=== PATIENT | male | born 1960 | race Caucasian/White ===

== ENCOUNTER 2016-12-23 13:26 | Inpatient (IN) | payer OTHER ==
--- NOTE | ~2016-12-23 | CN ---
Consultation Report [facility] [address] [place]. [address] NAME: LUX CONNOLLY : 56 STATUS : ADM IN PAT#: [id number] AGE: 56 ADM/REG DATE : 12/23/16 MR#: [id number] REPORT SERV DATE: 12/30/16 DICTATED BY: BERNICE VALDEZ DATE: 12/30/16 REPORT STATUS : Draft TRANSCRIBED BY: MODL DATE: 12/30/16 GI CONSULTATION DATE OF CONSULTATION: 12/30/2016 REASON FOR CONSULTATION: Evaluation and management of acute on chronic nausea and vomiting. HISTORY OF PRESENT ILLNESS: Mr. Connolly is a 56-year-old male patient, seen by Dr. Robby Beckford in the past, who presented to [facility] on 12/23 with a chief complaint of accelerated hypertension and states that he passed out. He has been evaluated by CT of the brain on admission, which was negative. He has a history of end-stage renal disease, requiring dialysis, as well as chronic pain and peripheral vascular disease, status post bilateral kflqk-xsu-ovwb amputations. Presently, he is feeling better, but he has been having ongoing issues with nausea and vomiting as well as dry heaves, thus prompting GI consultation. The patient states that every morning, he wakes up nauseous, will typically have dry heaves and states that on the days of dialysis, this improves significantly after treatment, but most days, he has improvement during the day and he is able to eat. He does state though he has lost 25 pounds, but cannot give me a time frame; however, he states that he does eat. He denies dysphagia or odynophagia. He has not seen any melena or hematochezia. He was noted to have constipation on KUB on admission, which has resolved with treatment. GI was consulted secondary to continued nausea and vomiting. The patient states that at present, he feels okay. He was able to tolerate some breakfast. He states though he has no associated abdominal pain with this. Last EGD and colonoscopy with Dr. Beckford was in 2011. On colonoscopy, he had polyps removed, there were both tubular adenomatous and hyperplastic. Random biopsies throughout the colon were within normal limits. EGD was done and found H pylori negative, biopsies were taken showing chronic gastritis, and the biopsies of the duodenum were negative. Discussed with the patient we will alter his medication regimen to see if this gives him any benefit. Question if this can be related to gastroparesis related to his diabetes as well as chronic pain medication use versus gastroesophageal reflux disease. Did discuss with him if medication adjustment was not beneficial, we would potentially plan on performing upper endoscopy at some point and he is agreeable. PAST MEDICAL HISTORY: End-stage renal disease, requiring hemodialysis; type 2 diabetes, diabetic retinopathy and neuropathy; psoriasis, psoriatic arthritis; accelerated hypertension; anemia of chronic disease; peripheral vascular disease, status post bilateral egirn-yhn-ochk amputations; COPD; coronary artery disease; history of cardiac arrest; pulmonary thromboembolus; DVT; hypothyroidism; hyperlipidemia; BPH; depression; hard of hearing. PAST SURGICAL HISTORY: Laparoscopic cholecystectomy, bilateral qwchf-rkl-ogjx amputations, multiple lumbar surgeries, and carpal tunnel release. ALLERGIES: CODEINE. Consultation Report [place] [id number] [place]. [address] NAME: LUX CONNOLLY : 56 STATUS : ADM IN [facility]#: [id number] AGE: 56 ADM/REG DATE : 12/23/16 MR#: [id number] REPORT SERV DATE: 12/30/16 DICTATED BY: BERNICE VALDEZ DATE: 12/30/16 REPORT STATUS : Draft TRANSCRIBED BY: CLIFF DATE: 12/30/16 FAMILY HISTORY: Noncontributory from a GI standpoint. SOCIAL HISTORY: . Still lives independently. Denies alcohol or tobacco. MEDICATIONS: [address], NovoLog, Lantus, and Lopressor. REVIEW OF SYSTEMS: A 10-point review of systems obtained, pertinent positives addressed in the history of present illness. PERTINENT LABORATORY DATA: Sodium 140, potassium 3.7, BUN is 15, creatinine 4.86. White blood cell count is 49, hemoglobin 12.6, hematocrit 38.6, platelet count 158. CT scan on 12/29 was negative. Total bilirubin 0.5, alkaline phosphatase 67, ALT 15, AST 12. PHYSICAL EXAMINATION: VITAL SIGNS: Temperature 98.5, pulse 65, respirations 18, blood pressure 186/92. NEURO: Reveals an alert, however, hard of hearing male, resting in bed with no focal deficits. GENERAL: Cooperative, in no apparent distress. Awake, alert, and oriented x3. HEAD, EARS, EYES, NOSE, AND THROAT: Anicteric. Pupils equal, round, and reactive to light and accommodation. Normocephalic and atraumatic. NECK: Supple. LUNGS: Decreased throughout with normal respiratory effort exhibited and equal expansion. CARDIOVASCULAR SYSTEM: Regular rate and rhythm. ABDOMEN: Soft and flat. No distention. No rebound or guarding elicited on exam. EXTREMITIES: Bilateral cekkq-msd-rgva amputations noted. SKIN: Warm, dry, and intact. ASSESSMENT: 1. Nausea, dry heaves with emesis, acute on chronic. 2. Constipation, improved on medications. 3. End-stage renal disease, on dialysis. 4. Hypertension/accelerated. 5. History of peripheral vascular disease, status post bilateral savwg-lah-qkyp amputations. 6. Chronic pain. PLAN: 1. Increase PPI. Add H2 inhibitor. 2. Increase his Reglan. 3. MiraLax. 4. If no improvement, add Zithromax IV as a prokinetic. Questionable EGD at some point. Consultation Report [address] [place]. [address] NAME: LUX CONNOLLY : 56 STATUS : ADM IN PAT#: [id number] AGE: 56 ADM/REG DATE : 12/23/16 MR#: [id number] REPORT SERV DATE: 12/30/16 DICTATED BY: BERNICE VALDEZ DATE: 12/30/16 REPORT STATUS : Draft TRANSCRIBED BY: CLIFF DATE: 12/30/16 ABRAHAM/CLIFF CHARLIE Ball / [id number] CC: Zara Martinez M.D.
--- NOTE | ~2016-12-23 | CN ---
Consultation Report [facility] [address] [facility] [place]. [address] NAME: LUX CONNOLLY : 56 STATUS : ADM IN PAT#: [id number] AGE: 56 ADM/REG DATE : 12/23/16 MR#: [id number] REPORT SERV DATE: 12/26/16 DICTATED BY: BELL GUILLEN DATE: 12/26/16 REPORT STATUS : Draft TRANSCRIBED BY: MODL DATE: 12/26/16 PALLIATIVE CARE CONSULTATION DATE OF CONSULTATION: 12/26/2016 REASON FOR CONSULTATION: Ongoing palliative care support in a compromised 56-year-old dialysis patient. ALLERGIES: CODEINE, PROBABLE GI UPSET. HISTORY OF PRESENT ILLNESS: Lux is an unfortunate 56-year-old white male, living in [place], who was here in mid November with nausea, vomiting, diarrhea, and hypertension. His meds were adjusted and he evidently on 12/23 had dialysis, went home, and became unresponsive. He was evidently unable to speak. He was admitted, evaluated, and neurological workup was negative. He had marked hypertension with blood pressures in the 220 range over 115 to 120. He is now improving with better blood pressure control and feels he is ready for discharge home. PAST MEDICAL HISTORY: Includes in 06/2016 catheterization, evidently showing inoperable severe coronary disease and he has had some chest pain episodes, treated with nitrates. He has had bilateral kqamu-sig-pamx amputations and had a perioperative cardiac arrest, in which he describes a bright light in speaking to his mother. He has had lumbar laminectomy, and he has had end-stage renal disease for five years. SOCIAL HISTORY: Remarkable for being for probably 10 to 15 years. He has been from his for about a year. She is living separately from him, but comes and checks on him on a regular basis. She is evidently working. He is living in a mobile home. He is doing this independently and is able to transfer to his wheelchair without assistance. His , Jazzmine, is not at the bedside at this time. He also names his sister as somebody he would want to have involved in decision making if he was unable to do so. He is a nonsmoker and nondrinker. No illicit drugs recently. 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 There are no pets in the home. REVIEW OF SYSTEMS: System review includes neuropathic symptoms of both hands. He is very hard of hearing, it has gotten worse. He has abnormal pulmonary function test several years ago, showing a normal FEV1/FVC ratio, but significant volume reductions of both consistent with a possible restrictive lung disease. There is a history of, I believe, one possible isolated seizure. The patient tolerates dialysis three times a week and gets there by bus. He says he is fairly compliant with his medications. PHYSICAL EXAMINATION: GENERAL: Shows a well-developed, bearded gentleman with male pattern baldness. VITAL SIGNS: His BMI is 27.8; temp 98.2; pulse 67 and regular, sinus rhythm on telemetry; Consultation Report [address] [place]. [address] NAME: LUX CONNOLLY : 56 STATUS : ADM IN [facility]#: [id number] AGE: 56 ADM/REG DATE : 12/23/16 MR#: [id number] REPORT SERV DATE: 12/26/16 DICTATED BY: BELL GUILLEN DATE: 12/26/16 REPORT STATUS : Draft TRANSCRIBED BY: CLIFF DATE: 12/26/16 respiratory rate 16; blood pressure is 160/78. HEENT: Show markedly decreased hearing, but preserved speech. He initially gestured and indicated that he could not hear at all. However, clearly, he is able to hear mostly through his right ear, but a bit through his left. Once introduced and engaged in the conversation, he actually was relatively verbally intact. CHEST: Shows a right PermCath to be in place. RESPIRATORY: Lung sounds are slightly decreased bilaterally, but clear. HEART: Shows a regular rate and rhythm. No murmurs, gallops, or extra heart sounds. Pulses are decreased in the extremities. ABDOMEN: Soft and nontender without rebound, tenderness, or guarding. : Not examined. EXTREMITIES: Show bilateral avkev-jfw-obhv amputations with intact stumps. No skin breakdown noted. IMPRESSION, PLAN, AND DISCUSSION: As part of our introduction, the question of advance care planning and designating a surrogate was reviewed with him. He indicates that his sister and his do not get along. He initially had indicated he wanted his sister to be his spokesperson, but then changed it to his because "she has earned it." He is willing to be resuscitated again as the last time, things were fairly successful. Overall, his insight is somewhat compromised. A lot of his answers are somewhat apathetic. He has not really thought much about his future, even though he is a dialysis patient with double amputations, living by himself. His overall willingness to look at difficult decision making issues is certainly compromised. I suspect this is his usual coping style. Information regarding an advance care plan will be offered to the patient and hopefully, he will be able to do some of that before he leaves the hospital. I anticipate we will be seeing him again. RWG/JOHANL Bell Guillen M.D. / [id number] CC: Zara Martinez M.D.
--- NOTE | ~2016-12-23 | DS ---
Discharge Summary [facility] [address] [place]. [address] NAME: LUX CONNOLLY : 56 STATUS : DIS IN PAT#: [id number] AGE: 56 ADM/REG DATE : 12/23/16 MR#: [id number] REPORT SERV DATE: 01/13/17 DICTATED BY: YOGI ASHER DATE: 01/12/17 REPORT STATUS : Draft TRANSCRIBED BY: MODReggie DATE: 01/12/17 Data Collection from hospitalization DISCHARGE DIAGNOSES: 1. End-stage renal disease. 2. Nausea and vomiting. 3. Hypertension. 4. Diabetes mellitus. 5. History of bilateral below-knee amputations. 6. Anemia. 7. History of cardiac arrest. 8. Coronary artery disease. CONSULTATIONS: Dr. Santiago Guillen and Donnell Wooten. PROCEDURES: 1. CT scan of the brain without contrast, 12/23/2016. 2. CT scan of the abdomen and pelvis without contrast, 12/29/2016. DISCHARGE MEDICATIONS: Apresoline 50 mg twice a day, [place] 10/325 one tablet 5 times a day, NovoLog as per sliding scale as instructed, Lantus 5 units subcutaneously twice a day, Cozaar 100 mg daily, Reglan 10 mg every six hours as instructed, Lopressor 100 mg twice a day, Procardia XL 40 mg twice a day, Protonix 40 mg twice a day, MiraLAX powder one packet as instructed, Zoloft 100 mg daily. CONDITION ON DISCHARGE: Stable. DISPOSITION: The patient was discharged home on a renal diet. Activities as instructed. He would follow up with me as instructed. He would follow up at [facility] as scheduled. HOSPITAL COURSE: This is a 56-year-old man who was currently dialyzing as an outpatient at [facility]. He is well known to the nephrology service for complications of recurrent episodes of accelerated hypertension. He has been admitted at least two other times prior to this. He does have end-stage renal disease secondary to long-standing diabetes with many of its attendant complications including peripheral vascular disease and small vessel vasculopathy and as a result, has had bilateral zdgid-ngj-msnp amputations. He had been somewhat ambivalent about his need for dialysis. He had been on and off again with consideration for hospice and more recently had been receiving outpatient dialysis via a right IJ PermCath. He had never received a long-standing access. He was doing his usual dialysis on the day of his admission when he became unresponsive following the development of hypertension. This was during dialysis. He had an incomplete run, and his dialysis was discontinued. He was transferred to the emergency department of [facility] where he was found to have blood pressure of 227/97. He was given IV hydralazine followed by a single dose of oral clonidine. This was insufficient to control his blood pressure. He was subsequently placed on nicardipine, and blood pressure went down to 137/87. The etiology of these hypertensive crises was clear but may represent some type of intradialytic complication with residual kidney. At the time of admission, he was demonstrating limited communication. A CT scan of the brain was performed which failed to demonstrate Discharge Summary [address] [place]. [address] NAME: LUX CONNOLLY : 56 STATUS : DIS IN PAT#: [id number] AGE: 56 ADM/REG DATE : 12/23/16 MR#: [id number] REPORT SERV DATE: 01/13/17 DICTATED BY: YOGI ASHER DATE: 01/12/17 REPORT STATUS : Draft TRANSCRIBED BY: CLIFF DATE: 01/12/17 intracranial bleed, stroke, midline shift, or development of PRESS. He was admitted to the hospital at this time for further evaluation and treatment. Upon admission, creatinine level was 3.67. The patient had intradialytic accelerated hypertension of unknown etiology at this time. He was easily correctable with nifedipine drip. We were currently going to switch him over to oral nifedipine in an attempt to wean the current nicardipine off. The patient would be dialyzed the following morning, and orders were written, and he would then be transferred back to the snf upon stabilization. The following day, he did have some nausea at the time of hemodialysis. Cardene drip was discontinued. Home medications were going to be started on the . He did appear cachectic. He was in no acute distress. Blood pressure was stable. Blood pressure was controlled. He was seen in consultation by Dr. Santiago Guillen regarding ongoing palliative care support and a compromised dialysis patient. Neurological workup had been negative. He has had marked hypertension with blood pressure in the 220 range over 115 to 120. He was now improving with better blood pressure control, and he felt like he was ready to be discharged home. His code status was discussed. It was felt that his overall willingness to look at difficult decision=making issues was certainly compromised. Information regarding an advanced care plan would be offered to the patient, and we were hopeful he would be able to do some of that before he leaves the hospital. On 12/27/2016, he denied any shortness of breath. He did have some nausea, vomiting, and dry heaves. Next day, his nausea had improved with Reglan. He had a bowel movement. Hemodialysis therapy continued. On the floor, he did have some liquid stools. He still had some dry heaves. His abdomen was soft and nontender. His lungs remained clear. Proton pump inhibitor was provided. He had been placed back on his usual Lortab. He could not keep anything oral down despite Reglan and Zofran. IV Reglan was being given. Proton pump inhibitor continued. He was seen by Donnell Wooten. H. pylori study was negative. We have been asked to evaluate and manage acute on chronic nausea and vomiting. The patient said he was feeling okay. He was able to tolerate some breakfast. He said he had no associated abdominal pain with this. His last EGD and colonoscopy had been in [address] Beckford. He has had polyps removed on the colonoscopy. He has had tubular adenomatous and hyperplastic polyps. Random biopsies throughout the colon were within normal limits. EGD revealed H. pylori negative. It was discussed with the patient that his medication regimen would be adjusted to see if this would give him any benefit. There was a question if this could be related to gastroparesis related to his diabetes as well as chronic pain medication use versus gastroesophageal reflux disease. It was discussed with him that if medication adjustment was not beneficial, that we would potentially plan on performing upper GI endoscopy at some point, and he was agreeable. Proton pump inhibitor was increased. H2 inhibitor was added. Reglan was increased. MiraLAX was given. If there was no improvement, we would add IV Zithromax as a prokinetic. On the , he did tolerate his breakfast. He had no edema. Creatinine level was 4.64. On 01/01/2017, his proton pump inhibitor and Reglan were changed to oral dosing. Nausea and vomiting seemed to be improving. The next day, hemodialysis therapy was performed. He was in no acute distress. Discharge planning was performed on 01/03/2017. He was alert and cooperative. Creatinine was 6.56. He was going to resume his outpatient hemodialysis. Blood pressure medications were increased. Discharge instructions were given. Due to his Discharge Summary [place] [address] [place] [address] NAME: LUX CONNOLLY : 56 STATUS : DIS IN PAT#: [id number] AGE: 56 ADM/REG DATE : 12/23/16 MR#: [id number] REPORT SERV DATE: 01/13/17 DICTATED BY: YOGI ASHER DATE: 01/12/17 REPORT STATUS : Draft TRANSCRIBED BY: CLIFF DATE: 01/12/17 improved and stable condition, he was discharged home with the above-stated instructions. Information collected by: Elly Davis I submit the above information as my discharge summary. TG/CLIFF Yogi Asher M.D. / [id number] CC: Jagdeep Jimenez M.D. [place] CHARLIE Wooten M.D.
--- NOTE | ~2016-12-23 | HP ---
History And Physical [place] [id number] [facility] [place]. [address] NAME: LUX CONNOLLY : 56 STATUS : ADM IN PAT#: [id number] AGE: 56 ADM/REG DATE : 12/23/16 MR#: [id number] REPORT SERV DATE: 12/24/16 DICTATED BY: YOGI ASHER DATE: 12/23/16 REPORT STATUS : Draft TRANSCRIBED BY: MODL DATE: 12/23/16 DATE OF ADMISSION: 12/23/2016 REASON FOR ADMISSION: Accelerated hypertension with end-stage renal disease and severe peripheral vascular disease. HISTORY OF PRESENT ILLNESS: Mr. Connolly is a 56-year-old male, who is currently dialyzing at the outpatient [facility]. He is well known to the Nephrology Service for complications of recurrent episodes of accelerated hypertension. He has been admitted at least 2 other times prior to this. The patient is known to have end-stage renal disease secondary to long-standing diabetes with many of its attendant complications including peripheral vascular disease and small vessel vasculopathy as a result of bilateral oxmju-kky-aojs amputations. The patient has been somewhat ambivalent about his need for dialysis. He has been on and off again with considerations for hospice and more recently has been receiving outpatient dialysis via a right IJ PermCath. The patient has never received a longstanding access. The patient was at his usual dialysis today when he became unresponsive following the development of hypertension. This was during dialysis, he had an incomplete run and his dialysis was discontinued. He was transferred to the emergency department at [facility] whereupon he was found to have a blood pressure of 227/97. He was attempted first with 10 mg of IV hydralazine followed by a single 0.1 mg dose of oral clonidine. This was insufficient to control his blood pressure. He was subsequently put on nicardipine at 2.5 mg/hour, he is currently 137/87. The etiology of these hypertensive crises are unclear, but may represent some type of intra dialytic complication with residual kidneys. The patient currently demonstrated limited communication. A head CT was obtained which failed to demonstrate intracranial bleed, stroke, midline shift, or development of press. He was subsequently admitted to the Renal Team. PHYSICAL EXAMINATION: On admission VITAL SIGNS: Blood pressure 227/92, pulse 62, respirations of 16, temperature 98.2, percent saturation is 100%. GENERAL: The patient is currently awake. He will respond to questions with a nodding of his head, but he does not engage in communication. He is unable to locate or identify his dialysis unit. HEENT: Exam shows no gross signs of trauma. He has mild temporal wasting. 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 His oral exam, the patient was not cooperative. He would not open his mouth. NECK: His neck is not rigid. There are no signs of meningeal pain at this time. LUNGS: His lungs are completely clear to auscultation without rales, rhonchi, or wheezes. No pleural friction or rub is noted. No consolidation, dullness, or egophony. CARDIOVASCULAR: Exam is normal S1, S2. No murmurs, gallops at this time. No ectopy. No pericardial friction rub. His right shoulder demonstrates a noninfected right IJ PermCath. ABDOMEN: Exam is flat and scaphoid. Nontender in all quadrants. No hepatosplenomegaly. EXTREMITIES: Significant for bilateral jsapc-owe-gjkm amputations. He has a nonfocal sensory motor exam. History And Physical [address] [address] NAME: LUX CONNOLLY : 56 STATUS : ADM IN [facility]#: [id number] AGE: 56 ADM/REG DATE : 12/23/16 MR#: [id number] REPORT SERV DATE: 12/24/16 DICTATED BY: YOGI ASHER DATE: 12/23/16 REPORT STATUS : Draft TRANSCRIBED BY: CLIFF DATE: 12/23/16 ALLERGIES: NONE. PAST SURGICAL HISTORY: 1. Laparoscopic cholecystectomy. 2. Bilateral tmvco-fir-tcfj amputations. 3. Multiple lumbar surgery. 4. Carpal tunnel release syndrome. FAMILY MEDICAL HISTORY: Father and grandmother both with diabetes and renal disease, but currently not on dialysis. Positive family history of heart disease. SOCIAL HISTORY: The patient is apparently . The patient is currently residing at a local jail. LABORATORY DATA: White count 5.1, hemoglobin 12.5, hematocrit 37.8, MCV of 89, platelet count of 149,000, sodium 142, potassium 4.2, chloride is 105, bicarb 27, BUN 20, creatinine 3.67, total protein 7.3, albumin 3.4. CURRENT MEDICATIONS: Are as follows: 1. Sliding scale insulin. 2. Zoloft 100 mg p.o. at bedtime. 3. Nifedipine 90 mg p.o. daily. 4. Cozaar 100 mg p.o. daily. 5. Protonix 40 mg p.o. daily. ASSESSMENT AND PLAN: End-stage renal disease with intra dialytic accelerated hypertension. Etiology is unknown at this time. He was easily correctable with nifedipine drip. We are currently going to switch him over to oral nifedipine and attempt to wean the current nicardipine to off. The patient will be dialyzed in the morning and the orders have been written and then he will be transferred back to his jail upon stabilization. WENDY/CLIFF Yogi Asher M.D. / [id number] CC: Zara Martinez M.D.
[~2016-12-23 13:26] MED LIST: ADVIL PO; APRES25 PO; APRES50 PO; ASAB PO; AVASTIN IO; AZOR1 TA2 PO; BACDS PO; BC HEADACHE PO; CELEXA20 PO; CLARIT10 PO; COREG12 PO; COREG25 PO; COREG6 PO; COZ50 PO; COZAAR100 MG PO; DIALYVITE800 MG PO; DSS PO; FERROUS SULF324 MG PO; FESO4 PO; FLOMAX4 PO; FOLIC PO; GLUCOPHAGE1000 MG PO; GLUCOTRO10 PO; HCTZ25B PO; HEMOCYTE324 MG PO; HEMOCYTET PO; HUMULIN R1 ML SC; HYDROCHLOROT12.5 MG PO; IODOSORB GEL T; LANTUS SC; LEVEMFLXPN SC; LEVEMIR SC; LORTAB 5 PO; LORTAB10 PO; MSCONT15 PO; NEUR100 PO; NORCO1 TAB PO; NORV10 PO; NORV5 PO; NOVOLOG SC; OPTHALMIC SC; PERCOCET1 TA3 PO; PHENERGAN 2525 MG/ML IV; PR12.5 PO; PRAVAC PO; PRAVACHOL40 MG PO; PRIN10 PO; PROTONIX PO; REG5 PO; RIFADIN150 MG PO; RIFAMPIN; ROCEPH IV; SEPTRA DS1 TAB PO; TUMSROLL PO; VANC125UDL PO; VANCO1P IV; [UNRECOGNIZED DRUG - OTHER] IV; [UNRECOGNIZED DRUG - REMARK] OPH
[2016-12-23 14:04] LABS: BASOPHILS 0.2 %; BASOPHILS ABSOLUTE 0.01 10/3/uL (0.0-0.16); EOSINOPHILS 2.4 %; EOSINOPHILS ABSOLUTE 0.12 10/3/uL (0.0-0.53); ER CBC TAT 0 Hrs 05 Mins; IMMATURE GRANULOCYTES 0.2 %; IMMATURE GRANULOCYTES ABSOLUTE 0.01 10/3/uL (0.0-0.11); LYMPHOCYTES 20.9 %; LYMPHOCYTES ABSOLUTE 1.06 10/3/uL (0.67-4.30); MEAN CORPUS HGB CONC 33.1 g/dL (32.0-36.0); MEAN CORPUSCULAR HEMOGLOB 29.5 pg (26.0-34.0); MEAN PLATELET VOLUME 8.6 fL (9.2-13.0); MONOCYTES 7.7 %; MONOCYTES ABSOLUTE 0.39 10/3/uL (0.21-1.20); NEUTROPHILS 68.6 %; NEUTROPHILS ABSOLUTE 3.48 10/3/uL (2.02-8.40); PLATELET COUNT 149 10/3/uL (150-400); RBC DISTRIBUTION WIDTH 15.1 % (12.0-16.0); WHITE BLOOD CELLS 5.1 10/3/uL (4.5-10.5)
[2016-12-23 14:08] LABS: HEMATOCRIT 37.8 % (40.0-51.0); HEMOGLOBIN 12.5 g/dL (13.6-17.8); MANUAL DIFF NO %; MEAN CORPUSCULAR VOLUME 89.2 fL (80-100); RED CELL COUNT 4.24 10/6/uL (4.7-6.1)
[2016-12-23 14:15] LABS: INTERNATIONAL NORMAL RATI 1.1 UNITS (-); PARTIAL THROMBO TIME 33.1 SEC (22.5-37.2); PROTIME (NOT ORD) 14.1 SEC (12.0-14.5)
[2016-12-23 14:23] LABS: A/G RATIO 0.9 (0.7-1.9); ALBUMIN 3.4 G/DL (3.5-5.0); ALKALINE PHOSPHATASE 66 U/L (45-117); BUN (BLOOD UREA NITROGEN) 20 MG/DL (6-23); CALCIUM, SERUM 7.8 MG/DL (8.5-10.4); CHLORIDE, SERUM 105 MMOL/L (96-112); CO2 (CARBON DIOXIDE) 27 MMOL/L (24-34); CREATININE 3.67 MG/DL (0.70-1.30); GFR AFRICAN AMERICAN 20 ML/MIN (>=60); GFR NON AFRICAN AMERICAN 17 ML/MIN (>=60); GLOBULIN 3.9 G/DL (2.5-4.1); GLUCOSE, SERUM 81 MG/DL (60-99); POTASSIUM, SERUM 4.2 MMOL/L (3.5-5.3); SGPT(ALT) 14 U/L (5-65); SODIUM, SERUM 142 MMOL/L (135-148); TOTAL BILIRUBIN 0.4 MG/DL (0-1.2); TOTAL PROTEIN 7.3 G/DL (6.0-8.5); TROPONIN I 0.03 NG/ML (<0.05)
[2016-12-23 14:24] LABS: SGOT(AST) 21 U/L (5-40)
[2016-12-23] MEDS ORDERED: LOP100 PO (15:43)
[2016-12-23] MEDS ORDERED: *UNABLE1 (15:51)
[2016-12-24 06:07] LABS: ALBUMIN 3.2 G/DL (3.5-5.0); ALKALINE PHOSPHATASE 60 U/L (45-117); CHLORIDE, SERUM 107 MMOL/L (96-112); CO2 (CARBON DIOXIDE) 24 MMOL/L (24-34); GLOBULIN 3.3 G/DL (2.5-4.1); GLUCOSE, SERUM 72 MG/DL (60-99); PHOSPHORUS, SERUM 4.3 MG/DL (2.5-4.5); POTASSIUM, SERUM 4.9 MMOL/L (3.5-5.3); SGOT(AST) 16 U/L (5-40); SGPT(ALT) 14 U/L (5-65); SODIUM, SERUM 141 MMOL/L (135-148); TOTAL BILIRUBIN 0.5 MG/DL (0-1.2); TOTAL PROTEIN 6.5 G/DL (6.0-8.5)
[2016-12-24 06:08] LABS: BUN (BLOOD UREA NITROGEN) 27 MG/DL (6-23); CALCIUM, SERUM 9.2 MG/DL (8.5-10.4); GFR AFRICAN AMERICAN 15 ML/MIN (>=60); GFR NON AFRICAN AMERICAN 13 ML/MIN (>=60); TROPONIN I 0.06 NG/ML (<0.05)
[2016-12-24 07:23] LABS: BASOPHILS 0.5 %; BASOPHILS ABSOLUTE 0.03 10/3/uL (0.0-0.16); EOSINOPHILS 1.8 %; HEMATOCRIT 35.9 % (40.0-51.0); HEMOGLOBIN 11.8 g/dL (13.6-17.8); IMMATURE GRANULOCYTES 0.2 %; IMMATURE GRANULOCYTES ABSOLUTE 0.01 10/3/uL (0.0-0.11); LYMPHOCYTES 19.5 %; LYMPHOCYTES ABSOLUTE 1.07 10/3/uL (0.67-4.30); MEAN CORPUS HGB CONC 32.9 g/dL (32.0-36.0); MEAN CORPUSCULAR HEMOGLOB 29.6 pg (26.0-34.0); MONOCYTES 7.5 %; MONOCYTES ABSOLUTE 0.41 10/3/uL (0.21-1.20); NEUTROPHILS 70.5 %; NEUTROPHILS ABSOLUTE 3.87 10/3/uL (2.02-8.40); PLATELET COUNT 165 10/3/uL (150-400); RBC DISTRIBUTION WIDTH 14.7 % (12.0-16.0); RED CELL COUNT 3.99 10/6/uL (4.7-6.1); WHITE BLOOD CELLS 5.5 10/3/uL (4.5-10.5)
[2016-12-24 07:24] LABS: MANUAL DIFF NO %
[2016-12-25 05:20] LABS: BASOPHILS 0.5 %; BASOPHILS ABSOLUTE 0.03 10/3/uL (0.0-0.16); EOSINOPHILS 0.7 %; EOSINOPHILS ABSOLUTE 0.04 10/3/uL (0.0-0.53); HEMATOCRIT 35.7 % (40.0-51.0); HEMOGLOBIN 11.7 g/dL (13.6-17.8); IMMATURE GRANULOCYTES 0.2 %; IMMATURE GRANULOCYTES ABSOLUTE 0.01 10/3/uL (0.0-0.11); LYMPHOCYTES 23.1 %; LYMPHOCYTES ABSOLUTE 1.36 10/3/uL (0.67-4.30); MEAN CORPUS HGB CONC 32.8 g/dL (32.0-36.0); MEAN CORPUSCULAR HEMOGLOB 29.5 pg (26.0-34.0); MEAN CORPUSCULAR VOLUME 89.9 fL (80-100); MEAN PLATELET VOLUME 9.4 fL (9.2-13.0); MONOCYTES 8.5 %; NEUTROPHILS ABSOLUTE 3.96 10/3/uL (2.02-8.40); PLATELET COUNT 166 10/3/uL (150-400); RBC DISTRIBUTION WIDTH 14.9 % (12.0-16.0); RED CELL COUNT 3.97 10/6/uL (4.7-6.1); WHITE BLOOD CELLS 5.9 10/3/uL (4.5-10.5)
[2016-12-25 05:24] LABS: MANUAL DIFF NO %
[2016-12-25 05:30] LABS: INTERNATIONAL NORMAL RATI 1.2 UNITS (-); PROTIME (NOT ORD) 15.1 SEC (12.0-14.5)
[2016-12-25 05:40] LABS: ALBUMIN 3.3 G/DL (3.5-5.0); ALKALINE PHOSPHATASE 67 U/L (45-117); CHLORIDE, SERUM 107 MMOL/L (96-112); CO2 (CARBON DIOXIDE) 28 MMOL/L (24-34); CREATININE 4.17 MG/DL (0.70-1.30); DIRECT BILIRUBIN 0.1 MG/DL (0.0-0.4); GFR AFRICAN AMERICAN 17 ML/MIN (>=60); GFR NON AFRICAN AMERICAN 15 ML/MIN (>=60); GLUCOSE, SERUM 68 MG/DL (60-99); INDIRECT BILIRUBIN(NOT ORDER) 0.4 MG/DL (0.1-0.9); PHOSPHORUS, SERUM 3.8 MG/DL (2.5-4.5); POTASSIUM, SERUM 4.1 MMOL/L (3.5-5.3); SGOT(AST) 12 U/L (5-40); SGPT(ALT) 15 U/L (5-65); SODIUM, SERUM 144 MMOL/L (135-148); TOTAL BILIRUBIN 0.5 MG/DL (0-1.2); TOTAL PROTEIN 6.6 G/DL (6.0-8.5)
[2016-12-25 05:45] LABS: BUN (BLOOD UREA NITROGEN) 19 MG/DL (6-23); CALCIUM, SERUM 8.1 MG/DL (8.5-10.4); TROPONIN I 0.05 NG/ML (<0.05)
[2016-12-26 06:12] LABS: ALBUMIN 3.2 G/DL (3.5-5.0); BUN (BLOOD UREA NITROGEN) 29 MG/DL (6-23); CALCIUM, SERUM 7.8 MG/DL (8.5-10.4); CHLORIDE, SERUM 103 MMOL/L (96-112); CO2 (CARBON DIOXIDE) 25 MMOL/L (24-34); CREATININE 5.21 MG/DL (0.70-1.30); GFR AFRICAN AMERICAN 13 ML/MIN (>=60); GFR NON AFRICAN AMERICAN 11 ML/MIN (>=60); GLUCOSE, SERUM 72 MG/DL (60-99); PHOSPHORUS, SERUM 4.3 MG/DL (2.5-4.5); POTASSIUM, SERUM 4.2 MMOL/L (3.5-5.3); SODIUM, SERUM 137 MMOL/L (135-148)
[2016-12-26 07:32] LABS: BASOPHILS 0.3 %; BASOPHILS ABSOLUTE 0.02 10/3/uL (0.0-0.16); EOSINOPHILS 1.4 %; HEMATOCRIT 36.3 % (40.0-51.0); HEMOGLOBIN 12.1 g/dL (13.6-17.8); IMMATURE GRANULOCYTES 0.3 %; IMMATURE GRANULOCYTES ABSOLUTE 0.02 10/3/uL (0.0-0.11); LYMPHOCYTES 13.6 %; LYMPHOCYTES ABSOLUTE 0.96 10/3/uL (0.67-4.30); MEAN CORPUS HGB CONC 33.3 g/dL (32.0-36.0); MEAN CORPUSCULAR HEMOGLOB 29.2 pg (26.0-34.0); MEAN CORPUSCULAR VOLUME 87.5 fL (80-100); MEAN PLATELET VOLUME 9.7 fL (9.2-13.0); MONOCYTES 10.3 %; MONOCYTES ABSOLUTE 0.73 10/3/uL (0.21-1.20); NEUTROPHILS 74.1 %; NEUTROPHILS ABSOLUTE 5.23 10/3/uL (2.02-8.40); PLATELET COUNT 157 10/3/uL (150-400); RBC DISTRIBUTION WIDTH 14.4 % (12.0-16.0); RED CELL COUNT 4.15 10/6/uL (4.7-6.1); WHITE BLOOD CELLS 7.1 10/3/uL (4.5-10.5)
[2016-12-26 07:35] LABS: MANUAL DIFF NO %
[2016-12-28 09:57] LABS: BASOPHILS 0.3 %; BASOPHILS ABSOLUTE 0.02 10/3/uL (0.0-0.16); EOSINOPHILS 1.8 %; EOSINOPHILS ABSOLUTE 0.11 10/3/uL (0.0-0.53); HEMATOCRIT 37.2 % (40.0-51.0); HEMOGLOBIN 12.4 g/dL (13.6-17.8); IMMATURE GRANULOCYTES 0.2 %; IMMATURE GRANULOCYTES ABSOLUTE 0.01 10/3/uL (0.0-0.11); LYMPHOCYTES 22.4 %; LYMPHOCYTES ABSOLUTE 1.36 10/3/uL (0.67-4.30); MEAN CORPUS HGB CONC 33.3 g/dL (32.0-36.0); MEAN CORPUSCULAR HEMOGLOB 29.7 pg (26.0-34.0); MEAN PLATELET VOLUME 9.4 fL (9.2-13.0); MONOCYTES 12.2 %; MONOCYTES ABSOLUTE 0.74 10/3/uL (0.21-1.20); NEUTROPHILS 63.1 %; NEUTROPHILS ABSOLUTE 3.82 10/3/uL (2.02-8.40); PLATELET COUNT 174 10/3/uL (150-400); RBC DISTRIBUTION WIDTH 14.5 % (12.0-16.0); RED CELL COUNT 4.18 10/6/uL (4.7-6.1); WHITE BLOOD CELLS 6.1 10/3/uL (4.5-10.5)
[2016-12-28 09:58] LABS: MANUAL DIFF NO %
[2016-12-28 10:06] LABS: ALBUMIN 3.3 G/DL (3.5-5.0); BUN (BLOOD UREA NITROGEN) 27 MG/DL (6-23); CALCIUM, SERUM 8.3 MG/DL (8.5-10.4); CHLORIDE, SERUM 104 MMOL/L (96-112); GFR AFRICAN AMERICAN 11 ML/MIN (>=60); GFR NON AFRICAN AMERICAN 10 ML/MIN (>=60); GLUCOSE, SERUM 76 MG/DL (60-99); PHOSPHORUS, SERUM 4.7 MG/DL (2.5-4.5); POTASSIUM, SERUM 3.8 MMOL/L (3.5-5.3); SODIUM, SERUM 140 MMOL/L (135-148)
[2016-12-28 10:07] LABS: CO2 (CARBON DIOXIDE) 30 MMOL/L (24-34)
[2016-12-29 07:16] LABS: BASOPHILS 0.6 %; BASOPHILS ABSOLUTE 0.03 10/3/uL (0.0-0.16); EOSINOPHILS 1.6 %; EOSINOPHILS ABSOLUTE 0.08 10/3/uL (0.0-0.53); HEMATOCRIT 38.6 % (40.0-51.0); HEMOGLOBIN 12.6 g/dL (13.6-17.8); IMMATURE GRANULOCYTES 0.8 %; IMMATURE GRANULOCYTES ABSOLUTE 0.04 10/3/uL (0.0-0.11); LYMPHOCYTES 19.8 %; LYMPHOCYTES ABSOLUTE 0.97 10/3/uL (0.67-4.30); MANUAL DIFF NO %; MEAN CORPUS HGB CONC 32.6 g/dL (32.0-36.0); MEAN CORPUSCULAR HEMOGLOB 29.4 pg (26.0-34.0); MONOCYTES 8.8 %; MONOCYTES ABSOLUTE 0.43 10/3/uL (0.21-1.20); NEUTROPHILS 68.4 %; NEUTROPHILS ABSOLUTE 3.34 10/3/uL (2.02-8.40); PLATELET COUNT 158 10/3/uL (150-400); RBC DISTRIBUTION WIDTH 14.6 % (12.0-16.0); RED CELL COUNT 4.29 10/6/uL (4.7-6.1); WHITE BLOOD CELLS 4.9 10/3/uL (4.5-10.5)
[2016-12-29 07:30] LABS: ALBUMIN 3.4 G/DL (3.5-5.0); BUN (BLOOD UREA NITROGEN) 15 MG/DL (6-23); CALCIUM, SERUM 8.3 MG/DL (8.5-10.4); CHLORIDE, SERUM 104 MMOL/L (96-112); CO2 (CARBON DIOXIDE) 27 MMOL/L (24-34); CREATININE 4.86 MG/DL (0.70-1.30); GFR AFRICAN AMERICAN 14 ML/MIN (>=60); GFR NON AFRICAN AMERICAN 12 ML/MIN (>=60); GLUCOSE, SERUM 90 MG/DL (60-99); PHOSPHORUS, SERUM 3.9 MG/DL (2.5-4.5); POTASSIUM, SERUM 3.7 MMOL/L (3.5-5.3); SODIUM, SERUM 140 MMOL/L (135-148)
[2016-12-30 16:18] LABS: BASOPHILS 0.2 %; BASOPHILS ABSOLUTE 0.01 10/3/uL (0.0-0.16); EOSINOPHILS 1.3 %; EOSINOPHILS ABSOLUTE 0.07 10/3/uL (0.0-0.53); HEMATOCRIT 35.5 % (40.0-51.0); HEMOGLOBIN 11.8 g/dL (13.6-17.8); IMMATURE GRANULOCYTES 0.2 %; IMMATURE GRANULOCYTES ABSOLUTE 0.01 10/3/uL (0.0-0.11); LYMPHOCYTES 23.7 %; LYMPHOCYTES ABSOLUTE 1.31 10/3/uL (0.67-4.30); MEAN CORPUS HGB CONC 33.2 g/dL (32.0-36.0); MEAN CORPUSCULAR HEMOGLOB 28.9 pg (26.0-34.0); MONOCYTES 8.5 %; MONOCYTES ABSOLUTE 0.47 10/3/uL (0.21-1.20); NEUTROPHILS 66.1 %; NEUTROPHILS ABSOLUTE 3.65 10/3/uL (2.02-8.40); PLATELET COUNT 144 10/3/uL (150-400); RBC DISTRIBUTION WIDTH 14.4 % (12.0-16.0); RED CELL COUNT 4.08 10/6/uL (4.7-6.1); WHITE BLOOD CELLS 5.5 10/3/uL (4.5-10.5)
[2016-12-30 16:21] LABS: MANUAL DIFF NO %
[2016-12-30 16:38] LABS: ALBUMIN 3.2 G/DL (3.5-5.0); BUN (BLOOD UREA NITROGEN) 29 MG/DL (6-23); CALCIUM, SERUM 7.7 MG/DL (8.5-10.4); CHLORIDE, SERUM 103 MMOL/L (96-112); CO2 (CARBON DIOXIDE) 30 MMOL/L (24-34); GFR AFRICAN AMERICAN 10 ML/MIN (>=60); GFR NON AFRICAN AMERICAN 9 ML/MIN (>=60); GLUCOSE, SERUM 124 MG/DL (60-99); PHOSPHORUS, SERUM 4.9 MG/DL (2.5-4.5); POTASSIUM, SERUM 3.9 MMOL/L (3.5-5.3); SODIUM, SERUM 137 MMOL/L (135-148)
[2016-12-31 06:13] LABS: BASOPHILS 0.5 %; BASOPHILS ABSOLUTE 0.03 10/3/uL (0.0-0.16); EOSINOPHILS 2.5 %; EOSINOPHILS ABSOLUTE 0.14 10/3/uL (0.0-0.53); HEMOGLOBIN 12.8 g/dL (13.6-17.8); IMMATURE GRANULOCYTES 0.2 %; IMMATURE GRANULOCYTES ABSOLUTE 0.01 10/3/uL (0.0-0.11); LYMPHOCYTES 22.8 %; LYMPHOCYTES ABSOLUTE 1.28 10/3/uL (0.67-4.30); MEAN CORPUS HGB CONC 32.8 g/dL (32.0-36.0); MEAN CORPUSCULAR HEMOGLOB 29.2 pg (26.0-34.0); MEAN CORPUSCULAR VOLUME 88.8 fL (80-100); MEAN PLATELET VOLUME 9.2 fL (9.2-13.0); MONOCYTES 9.6 %; MONOCYTES ABSOLUTE 0.54 10/3/uL (0.21-1.20); NEUTROPHILS 64.4 %; NEUTROPHILS ABSOLUTE 3.62 10/3/uL (2.02-8.40); PLATELET COUNT 147 10/3/uL (150-400); RBC DISTRIBUTION WIDTH 14.3 % (12.0-16.0); RED CELL COUNT 4.39 10/6/uL (4.7-6.1); WHITE BLOOD CELLS 5.6 10/3/uL (4.5-10.5)
[2016-12-31 06:18] LABS: ALBUMIN 3.3 G/DL (3.5-5.0); CALCIUM, SERUM 7.7 MG/DL (8.5-10.4); CHLORIDE, SERUM 107 MMOL/L (96-112); CO2 (CARBON DIOXIDE) 28 MMOL/L (24-34); MANUAL DIFF NO %; POTASSIUM, SERUM 4.3 MMOL/L (3.5-5.3); SODIUM, SERUM 143 MMOL/L (135-148)
[2016-12-31 06:19] LABS: BUN (BLOOD UREA NITROGEN) 18 MG/DL (6-23); CREATININE 4.64 MG/DL (0.70-1.30); GFR AFRICAN AMERICAN 15 ML/MIN (>=60); GFR NON AFRICAN AMERICAN 13 ML/MIN (>=60); GLUCOSE, SERUM 88 MG/DL (60-99); PHOSPHORUS, SERUM 3.8 MG/DL (2.5-4.5)
[2017-01-02 06:05] LABS: BASOPHILS 0.7 %; BASOPHILS ABSOLUTE 0.03 10/3/uL (0.0-0.16); EOSINOPHILS 3.1 %; EOSINOPHILS ABSOLUTE 0.14 10/3/uL (0.0-0.53); HEMATOCRIT 36.1 % (40.0-51.0); HEMOGLOBIN 11.9 g/dL (13.6-17.8); IMMATURE GRANULOCYTES 0.2 %; IMMATURE GRANULOCYTES ABSOLUTE 0.01 10/3/uL (0.0-0.11); LYMPHOCYTES ABSOLUTE 1.83 10/3/uL (0.67-4.30); MEAN PLATELET VOLUME 9.5 fL (9.2-13.0); MONOCYTES 9.2 %; MONOCYTES ABSOLUTE 0.42 10/3/uL (0.21-1.20); NEUTROPHILS 46.8 %; NEUTROPHILS ABSOLUTE 2.15 10/3/uL (2.02-8.40); PLATELET COUNT 120 10/3/uL (150-400); RBC DISTRIBUTION WIDTH 14.3 % (12.0-16.0); WHITE BLOOD CELLS 4.6 10/3/uL (4.5-10.5)
[2017-01-02 06:07] LABS: MANUAL DIFF NO %
[2017-01-02 06:29] LABS: ALBUMIN 3.3 G/DL (3.5-5.0); CALCIUM, SERUM 7.7 MG/DL (8.5-10.4); CHLORIDE, SERUM 105 MMOL/L (96-112); GLUCOSE, SERUM 91 MG/DL (60-99); POTASSIUM, SERUM 3.9 MMOL/L (3.5-5.3); SODIUM, SERUM 139 MMOL/L (135-148)
[2017-01-02 06:30] LABS: BUN (BLOOD UREA NITROGEN) 45 MG/DL (6-23); CO2 (CARBON DIOXIDE) 23 MMOL/L (24-34); CREATININE 6.56 MG/DL (0.70-1.30); GFR AFRICAN AMERICAN 10 ML/MIN (>=60); GFR NON AFRICAN AMERICAN 8 ML/MIN (>=60); PHOSPHORUS, SERUM 5.9 MG/DL (2.5-4.5)
[2017-01-03] MEDS ORDERED: COZAAR100 MG PO (12:10)
[2017-01-03] MEDS ORDERED: REG PO (12:11)
[2017-01-03] MEDS ORDERED: NXL3 PO (12:12)
[2017-01-03] MEDS ORDERED: MIRALAX POWDER1 PKT PO (12:12)
[2017-01-03] MEDS ORDERED: PROTONIX PO (12:12)
[2017-01-03] MEDS ORDERED: APRES50 PO (12:13)
[2017-01-03] MEDS ORDERED: ZOL100 PO (12:23)
[2017-05-17] MEDS ORDERED: *UNABLE1 (22:40)
[2017-05-17] MEDS ORDERED: BP MED (22:40)
== END 2017-01-03 14:19 | disposition home or self-care (01) | DRG 682 ==
LOC: ER 13:26 → IMCU 17:09 → 4SO 12-25 18:09
PROVIDERS: Hospitalist; Internal Medicine Nephrology; Nurse Practitioner
PROC: 5A1D60Z (ICD-10-PCS; principal; 2016-12-24)
DX: I12.0 Hypertensive chronic kidney disease with stage 5 chronic kidney disease or end stage renal disease (principal); N18.6 End stage renal disease; E11.22 Type 2 diabetes mellitus with diabetic chronic kidney disease; E44.1 Mild protein-calorie malnutrition; Z99.2 Dependence on renal dialysis; I73.9 Peripheral vascular disease, unspecified; Z51.5 Encounter for palliative care; I25.10 Atherosclerotic heart disease of native coronary artery without angina pectoris; Z89.512 Acquired absence of left leg below knee; Z89.511 Acquired absence of right leg below knee; Z79.4 Long term (current) use of insulin; Z79.899 Other long term (current) drug therapy; Z86.74 Personal history of sudden cardiac arrest; Z88.5 Allergy status to narcotic agent; E11.51 Type 2 diabetes mellitus with diabetic peripheral angiopathy without gangrene; K59.00 Constipation, unspecified; E11.319 Type 2 diabetes mellitus with unspecified diabetic retinopathy without macular edema; E11.40 Type 2 diabetes mellitus with diabetic neuropathy, unspecified; E03.9 Hypothyroidism, unspecified; E78.5 Hyperlipidemia, unspecified; N40.0 Benign prostatic hyperplasia without lower urinary tract symptoms; F32.9 Major depressive disorder, single episode, unspecified; D63.1 Anemia in chronic kidney disease; J44.9 Chronic obstructive pulmonary disease, unspecified; Z86.718 Personal history of other venous thrombosis and embolism; Z79.891 Long term (current) use of opiate analgesic
CPT/HCPCS: 70450; 71010; 74000; 74176; 80053; 80069; 80076; 82140; 82962; 83735; 83880; 84484; 85025; 85610; 85730; 93005; 96374; 96375; 97161-GP; 97166-GO; 99291; A9270-GY; C9113; G0257; G8987-CH-GO; G8988-CH-GO; G8989-CH-GO; J0360; J2405; J2550; J2765; P9047

== ENCOUNTER 2017-01-05 13:39 | Emergency (ER) | payer OTHER ==
[2017-01-05 12:38] LABS: BASOPHILS 0.4 %; BASOPHILS ABSOLUTE 0.02 10/3/uL (0.0-0.16); EOSINOPHILS 0.2 %; EOSINOPHILS ABSOLUTE 0.01 10/3/uL (0.0-0.53); ER CBC TAT 0 Hrs 07 MinsN; HEMATOCRIT 41.8 % (40.0-51.0); HEMOGLOBIN 14.4 g/dL (13.6-17.8); IMMATURE GRANULOCYTES 0.2 %; IMMATURE GRANULOCYTES ABSOLUTE 0.01 10/3/uL (0.0-0.11); LYMPHOCYTES 15.8 %; LYMPHOCYTES ABSOLUTE 0.76 10/3/uL (0.67-4.30); MANUAL DIFF NO %; MEAN CORPUS HGB CONC 34.4 g/dL (32.0-36.0); MEAN CORPUSCULAR HEMOGLOB 29.6 pg (26.0-34.0); MEAN CORPUSCULAR VOLUME 85.8 fL (80-100); MEAN PLATELET VOLUME 9.7 fL (9.2-13.0); MONOCYTES 5.4 %; MONOCYTES ABSOLUTE 0.26 10/3/uL (0.21-1.20); NEUTROPHILS ABSOLUTE 3.76 10/3/uL (2.02-8.40); PLATELET COUNT 156 10/3/uL (150-400); RBC DISTRIBUTION WIDTH 14.1 % (12.0-16.0); RED CELL COUNT 4.87 10/6/uL (4.7-6.1); WHITE BLOOD CELLS 4.8 10/3/uL (4.5-10.5)
[2017-01-05 12:52] LABS: A/G RATIO 1.1 (0.7-1.9); ALKALINE PHOSPHATASE 78 U/L (45-117); BUN (BLOOD UREA NITROGEN) 42 MG/DL (6-23); CHLORIDE, SERUM 100 MMOL/L (96-112); CO2 (CARBON DIOXIDE) 25 MMOL/L (24-34); CREATININE 6.22 MG/DL (0.70-1.30); GFR AFRICAN AMERICAN 11 ML/MIN (>=60); GFR NON AFRICAN AMERICAN 9 ML/MIN (>=60); GLOBULIN 3.7 G/DL (2.5-4.1); POTASSIUM, SERUM 4.5 MMOL/L (3.5-5.3); SGOT(AST) 15 U/L (5-40); SGPT(ALT) 13 U/L (5-65); SODIUM, SERUM 136 MMOL/L (135-148); TOTAL BILIRUBIN 0.6 MG/DL (0-1.2); TOTAL PROTEIN 7.8 G/DL (6.0-8.5)
[2017-01-05 12:54] LABS: ALBUMIN 4.1 G/DL (3.5-5.0); GLUCOSE, SERUM 123 MG/DL (60-99)
[~2017-01-05 13:39] MED LIST changes: +*UNABLE1; +LOP100 PO; +MIRALAX POWDER1 PKT PO; +NXL3 PO; +REG PO; +ZOL100 PO
[2017-05-17] MEDS ORDERED: *UNABLE1 (22:40)
[2017-05-17] MEDS ORDERED: BP MED (22:40)
== END 2017-01-05 14:59 | disposition home or self-care (01) ==
LOC: ER 13:39
PROVIDERS: Emergency Medicine
DX: I12.9 Hypertensive chronic kidney disease with stage 1 through stage 4 chronic kidney disease, or unspecified chronic kidney disease (principal); N18.9 Chronic kidney disease, unspecified; F32.9 Major depressive disorder, single episode, unspecified; Z88.5 Allergy status to narcotic agent; Z79.4 Long term (current) use of insulin; Z79.899 Other long term (current) drug therapy
CPT/HCPCS: 80053; 83690; 85025; 93005; 96374; 99285; A9270-GY; J2405; J2550

== ENCOUNTER 2017-01-30 11:00 | Inpatient (IN) | payer OTHER ==
--- NOTE | ~2017-01-30 | EEG ---
Electroencephalogram [address] [address] [place]. [address] NAME: LUX CONNOLLY : 56 STATUS : ADM IN PAT#: [id number] AGE: 56 ADM/REG DATE : 01/30/17 MR#: [id number] REPORT SERV DATE: 02/01/17 DICTATED BY: KENN CAMPBELL DATE: 02/01/17 REPORT STATUS : Draft TRANSCRIBED BY: MODReggie DATE: 02/01/17 INTERPRETING PHYSICIAN: Kenn Campbell MD, Neurology. REASON FOR EEG: Possible seizure on 01/30/2017. No previous history of seizures. ELECTROENCEPHALOGRAPHY REPORT: 23 surface electrodes, 10-20 [employer] Placement was used. The patient was described to be awake and drowsy throughout the study. Photic stimulation was performed. Video monitoring was utilized. The background activity consisted of moderate-voltage, relatively well-organized 8 cycles per second located in the posterior head regions. During the more alert portion of the recording, the background activity consisted of moderate-voltage, well-organized 9 cycles per second located in the posterior head regions. This alpha range activity attenuated well with the eye opening maneuvers. Photic stimulation produced partial driving response. No significant asymmetry of cerebral activity was noted. No paroxysmal or epileptiform features were present during this recording. The patient's satellite project site monitor showed borderline sinus bradycardia, heart rate of approximately 56 beats per minute. IMPRESSION: THIS EEG IS WITHIN NORMAL RANGE FOR AN AWAKE AND DROWSY STATE. NO PAROXYSMAL OR EPILEPTIFORM ACTIVITY WAS NOTED DURING THIS STUDY. CLINICAL CORRELATION IS RECOMMENDED. ROJELIO/CLIFF Kenn Campbell MD / [id number] CC: Zara Gupta M.D.
--- NOTE | ~2017-01-30 | CN ---
Consultation Report [facility] [address] [place]. [address] NAME: LUX CONNOLLY : 56 STATUS : ADM IN PAT#: [id number] AGE: 56 ADM/REG DATE : 01/30/17 MR#: [id number] REPORT SERV DATE: 02/02/17 DICTATED BY: BERNICE VALDEZ DATE: 02/02/17 REPORT STATUS : Draft TRANSCRIBED BY: MODL DATE: 02/02/17 GI CONSULTATION DATE OF CONSULTATION: 02/02/2017 REASON FOR CONSULTATION: Evaluation and management of nausea, vomiting, and dry heaves, acute/chronic. HISTORY OF PRESENT ILLNESS: Mr. Connolly is a 56-year-old male patient, who has been seen by Dr. Radha Beckford in the past, who presented to [facility] on 01/30/2017 with altered mental status and seizure activity. He was admitted after receiving hemodialysis. He started to have a "tonic colonic seizure." Blood sugar was 71. He was given D50 and sent over to [facility] in the ambulance. His seizure activity ceased in the ambulance right over. He had an elevated blood pressure on arrival to [facility]'s emergency room with IV hydralazine being given and was admitted for further evaluation. He had a CT of the brain without contrast that showed no evidence of acute bleed or infarction. He has been seen by Neurology for assessment of his seizures, diagnosed as psychogenic nonepileptic seizures with a negative EEG, who has since signed off his case. Consultation was from Neurology secondary to nausea with emesis. We did just recently see Mr. Connolly in the hospital on 12/30/2016 for chronic nausea and vomiting. Medication changes were made. He had improved somewhat and was subsequently discharged. The patient states that he still has issues with intermittent emesis as well as chronic dry heaving and hiccups. He has not had any vomiting today or dry heaves. He has had endoscopy with Dr. Beckford last in 2011. His colonoscopy was done with polyps being removed, tubular adenomatous and hyperplastic. He had random biopsies throughout his colon, which were within normal limits. He had an EGD done also which was H pylori negative. Biopsies were taken showing chronic gastritis and biopsies of the duodenum were negative. I have discussed with the patient as he has continued to have trouble with nausea and vomiting. We will plan to repeat endoscopy and informed of an EGD tomorrow. Discussed the risks, benefits, alternatives, and complications with him to include, but not limited to risk of bleeding, perforation, infection, reaction to medication, as well as cardiac and pulmonary side effects. He is agreeable to proceed. PAST MEDICAL HISTORY: Positive for end-stage renal disease requiring hemodialysis, type 2 diabetes, diabetic retinopathy, diabetic neuropathy, psoriasis, psoriatic arthritis, accelerated hypertension, anemia of chronic disease, peripheral vascular disease, status post bilateral dgjfd-gwk-dmvc amputations, COPD, coronary artery disease, history of cardiac arrest, history of pulmonary thromboembolus, DVT, hypothyroidism, hyperlipidemia, BPH, depression, and hard of hearing. PAST SURGICAL HISTORY: Includes laparoscopic cholecystectomy, bilateral lgask-zxp-kpqx amputations, multiple lumbar surgeries, and carpal tunnel release. ALLERGIES: LISTED TO CODEINE. FAMILY HISTORY: Noncontributory from a GI standpoint. Consultation Report [address] [place]. [address] NAME: LUX CONNOLLY : 56 STATUS : ADM IN [facility]#: [id number] AGE: 56 ADM/REG DATE : 01/30/17 MR#: [id number] REPORT SERV DATE: 02/02/17 DICTATED BY: BERNICE VALDEZ DATE: 02/02/17 REPORT STATUS : Draft TRANSCRIBED BY: CLIFF DATE: 02/02/17 SOCIAL HISTORY: He is . Still lives independently. Denies alcohol, tobacco, or illicit drugs. HOME MEDICATIONS: Blythe, NovoLog, Lantus, and an unspecified blood pressure medication. REVIEW OF SYSTEMS: A 10-point review of systems has been obtained with pertinent positives being addressed in the history of present illness. PHYSICAL EXAMINATION: VITAL SIGNS: Temperature 98.0, pulse 61, respirations 15, and blood pressure 196/82. NEUROLOGIC: Reveals a male, resting in bed with eyes closed, who awakens to name. He is alert and oriented x3. GENERAL: He is cooperative. He is in no acute distress. He is slow to answer all questions. Somewhat hard of hearing. HEAD, EARS, EYES, NOSE, AND THROAT: Anicteric. Pupils are equal, round, reactive to light and accommodation. Normocephalic and atraumatic. NECK: No JVD. No palpable nodes. Supple. LUNGS: Decreased in the bases, clear in upper lobes and normal respiratory effort exhibited. CARDIOVASCULAR SYSTEM: Regular rate and rhythm. ABDOMEN: Soft and flat with no distention. No rebound or guarding elicited on exam. No organomegaly appreciated. EXTREMITIES: Noted bilateral lgfbo-seb-hawf amputations. SKIN: Warm, dry, and intact. PERTINENT LABORATORY DATA: Sodium 139, potassium 4.3, BUN is 35, creatinine is 5.50, calcium is 7.7, glucose 89, magnesium 2. White count 5.8, hemoglobin 10.6, hematocrit 31.6, and platelet count 122. INR of 1.1. ASSESSMENT: 1. Nausea, dry heaves, and emesis, acute/chronic. 2. End-stage renal disease with hemodialysis dependence. 3. Accelerated hypertension. 4. Peripheral vascular disease, status post bilateral pxbdf-cjd-zgnz amputations. 5. Chronic pain. 6. History of constipation. PLAN: 1. N.p.o. after midnight. 2. EGD in the morning. 3. Increase PPI to b.i.d. and add H2 inhibitor. 4. Add MiraLAX. 5. Low-dose Reglan for 24 hours. We will follow. Other recommendations to follow endoscopy. Consultation Report [address] [place]. [address] NAME: LUX CONNOLLY : 56 STATUS : ADM IN [facility]#: [id number] AGE: 56 ADM/REG DATE : 01/30/17 MR#: [id number] REPORT SERV DATE: 02/02/17 DICTATED BY: BERNICE VALDEZ DATE: 02/02/17 REPORT STATUS : Draft TRANSCRIBED BY: CLIFF DATE: 02/02/17 ABRAHAM/CLIFF CHARLIE Ball / [id number] CC: Zara Gupta M.D.
--- NOTE | ~2017-01-30 | CN ---
Consultation Report [facility] [address] [place]. [address] NAME: LUX CONNOLLY : 56 STATUS : ADM IN [facility]#: [id number] AGE: 56 ADM/REG DATE : 01/30/17 MR#: [id number] REPORT SERV DATE: 01/31/17 DICTATED BY: ESTELA METZGER DATE: 01/31/17 REPORT STATUS : Draft TRANSCRIBED BY: MODReggie DATE: 01/31/17 NEUROLOGY CONSULTATION DATE OF CONSULTATION: 01/31/2017 REASON FOR CONSULTATION: Altered mental status and seizure. NEPHROLOGISTS: Dr. Landry Abrams and Mu Armijo APN. HISTORY OF PRESENT ILLNESS: The patient is a 56-year-old male, who was admitted on 01/30/2017 of this month for altered mental status. He was having hemodialysis that day, when he started to have a tonic-clonic seizure. Lab work was checked and his blood sugar was 71. He was given a half an amp of D50W. On the way over in the ambulance, he stopped having seizure activity. When he arrived in the emergency department, his blood pressure was elevated. He was given hydralazine IV. Consequently, he was admitted for further evaluation and treatment. It was thought that maybe he had seizure because of his hypoglycemia. The patient states that his blood sugars run in the low 100s to 120s. Because his blood sugars have been running fairly low, he does not take IV insulin at home. The patient also stated that he had a blood sugar of 18 yesterday. This was confirmed with the results recorded in the computer; however, the computer results said 118. The patient is eating and receiving medication according to his blood sugar results if appropriate. The patient states he does not have a history of seizure activity. He also states that he feels "funny". He is very "nervous and jittery". PAST MEDICAL HISTORY: Coronary artery disease with cardiac arrest, BPH, depression, psoriatic arthritis, end-stage renal disease on dialysis, diabetes mellitus type 2, malignant hypertension, atherosclerotic cardiovascular disease, noncompliance with medications, COPD, anemia of chronic disease, diabetic retinopathy, diabetic neuropathy, history of pulmonary embolus, DVT, and hypothyroidism. PAST SURGICAL HISTORY: Lap cholecystectomy, bilateral urkib-khp-ovpc amputations, multiple lumbar back surgeries, and bilateral carpal tunnel release. HOME MEDICATION LIST: Includes Troy 10/325 mg one five times a day, Lantus insulin dose unknown, and blood pressure medicine dose unknown. ALLERGIES: CODEINE, IV IRON. SOCIAL HISTORY: The patient is . He and his did live with his niece; however, he lives now by himself. He does not smoke, drink, alcohol, or use illicits. FAMILY HISTORY: The patient's mother at the age of 62 from lung cancer. His father at the age of 62 from renal failure. He has one sister who is alive and healthy. Consultation Report [facility] [id number] [facility] [place]. [address] NAME: LUX CONNOLLY : 56 STATUS : ADM IN [facility]#: [id number] AGE: 56 ADM/REG DATE : 01/30/17 MR#: [id number] REPORT SERV DATE: 01/31/17 DICTATED BY: ESTELA METZGER DATE: 01/31/17 REPORT STATUS : Draft TRANSCRIBED BY: CLIFF DATE: 01/31/17 REVIEW OF SYSTEMS: For pertinent positives, please refer to HPI. PHYSICAL EXAMINATION: GENERAL: The patient is a 56-year-old male, who stands 5 feet 11 inches tall prior to bilateral BKA and weighs 160 pounds. VITAL SIGNS: He is afebrile, heart rate 56, respiratory rate 18, O2 saturations on 2 L nasal cannula 98%, blood pressure 164/77. NEURO: The patient is extremely hard of hearing. He is oriented x4. He is anxious. Pupil is 3 mm on the right and reactive, left is irregular in shape and nonreactive. Funduscopic exam, positive red reflex on the right, normal disc cup ratio, no nicking, hemorrhaging, no papillary edema, unable to visualize fundus on the left. Otherwise, cranial nerves II through XII are intact. He can move the upper extremities without difficulty. Strength is 5/5 in the upper extremities, upper DTRs 1+ bilaterally. No reported sensory deficits. In the lower extremities, the patient has bilateral BKA. No reported sensory deficits. NECK: No carotid bruits, JVD, or thyromegaly. CHEST: Lung sounds relatively clear, diminished in the bases. CARDIAC: Sinus bradycardia with occasional premature beat. LABORATORY DATA: CBC on 01/31/2017 of this month is normal with a slightly low platelet count of 120 and BMP on 01/30/2017 reveals potassium of 3.5, BUN 20, creatinine 3.18, blood sugar 79. Troponins are mildly elevated at 0.05. CT of the brain, no acute changes. EEG is pending. ASSESSMENT AND PLAN: 1. Seizures, etiology unknown. Some potential causes could be mild hypoglycemia. His blood sugar has been running around 78 to 80, likely this is not low enough blood sugar to cause seizure unless the patient runs very high blood sugars at home anywhere from 300 to 500 mg/dL. At this point, I will check his A1c. 2. Psychogenic nonepileptic seizure. The patient's EEG is pending. I will place him on Depakote for mood stabilization affects. 3. True epileptic seizure. Again, the EEG is pending. The patient will be placed on Depakote IV with an IV bolus and then placed on p.o. medications. He will be on seizure precautions and Ativan p.r.n. for seizure activity. 4. Possible withdrawal from narcotics. The patient was taking Troy 5 times a day at least. Make sure the nursing staff is giving him Troy at least once or twice a day to prevent any narcotic withdrawal. Thank you again for including us in consultation. We will continue to follow with you. SY/CLIFF Estela Metzger DNP, [facility]- Consultation Report [address] [address] NAME: CATHLEENLUX LE : 56 STATUS : ADM IN PAT#: [id number] AGE: 56 ADM/REG DATE : 01/30/17 MR#: [id number] REPORT SERV DATE: 01/31/17 DICTATED BY: ESTELA METZGER DATE: 01/31/17 REPORT STATUS : Draft TRANSCRIBED BY: CLIFF DATE: 01/31/17 / [id number] CC: Zara Gupta M.D. John Richardson, NP
--- NOTE | ~2017-01-30 | HP ---
History And Physical [facility] [address] [place]. [address] NAME: LUX CONNOLLY : 56 STATUS : ADM IN [facility]#: [id number] AGE: 56 ADM/REG DATE : 01/30/17 MR#: [id number] REPORT SERV DATE: 01/30/17 DICTATED BY: LANDRY CORDERO DATE: 01/30/17 REPORT STATUS : Draft TRANSCRIBED BY: MODL DATE: 01/30/17 DATE OF ADMISSION: 01/30/2017 HISTORY OF PRESENT ILLNESS: Mr. Connolly is a 56-year-old white male with end-stage renal disease, admitted from hemodialysis with altered mental status. Apparently presented to dialysis with severe hypertension, was placed on hemodialysis. An hour and a half into dialysis, he was found less responsive. They tried to arouse him, but could not. Blood sugar was 71, given half an amp of D50. Still no response. Started jerking with his arms jumping, nonfocal and ambulance was called and transferred to [facility]. When he arrived here, no further seizure activity or jerking was noted, started arousing, but still was not oriented. CT scan of the head showed no new lesions and blood sugar was 80. He was observed here. Blood pressure was very high, was given IV hydralazine. Had some nausea and vomiting, after that he felt much better and now currently he is oriented x3, cooperative, in no acute distress, but admits to not taking his medications as prescribed. PAST MEDICAL HISTORY: Significant for hypertension; atherosclerotic cardiovascular disease; bilateral tstwu-zmt-qjba amputations; diabetes mellitus, not taking any insulin; COPD; chronic anemia, on erythropoietin at the clinic. SURGICAL HISTORY: He got lap loco, bilateral below-knee amputations, back surgeries multiple times, and carpal tunnel syndrome release. He has not had an AV fistula placed, has a PermCath in his right IJ vein. PHYSICAL EXAMINATION: VITAL SIGNS: His blood pressure 164/64, heart rate of 62, respirations 18 to 20, and on admission it was 216/100. GENERAL: He is alert, oriented x3. Knows he is at [facility]. Knows it is Monday and 2016, and his name, but falls asleep between questions. HEENT: Shows blindness, left eye. NECK: No bruits in his neck. LUNGS: Clear. CARDIOVASCULAR: Grade 2/6 systolic ejection murmur. Otherwise unremarkable. Has a right IJ PermCath in place. ABDOMEN: Soft, benign. Bowel sounds are present. EXTREMITIES: No edema. Below-knee amputation bilaterally. SKIN: No rash. LYMPHATICS: No lymphadenopathy. No open sores. NEURO: Could tell me what medications he took, what he did not do, and could not remember what happened at the clinic. LAB: Shows sodium 141, potassium 3.5, chloride 105, CO2 of 30, BUN of 20, creatinine 3.18, calcium is 7.3, albumin 3.2, magnesium 1.8, phosphorus 5.9, blood sugar 80. INR 1.0. White count 4.3, hemoglobin 10, hematocrit 31, platelet count 107,000. Troponin was 0.05, his baseline. A CT scan of his head showed no new lesions. ASSESSMENT: History And Physical [address] [address] NAME: LUX CONNOLLY : 56 STATUS : ADM IN [facility]#: [id number] AGE: 56 ADM/REG DATE : 01/30/17 MR#: [id number] REPORT SERV DATE: 01/30/17 DICTATED BY: LANDRY CORDERO DATE: 01/30/17 REPORT STATUS : Draft TRANSCRIBED BY: CLIFF DATE: 01/30/17 1. Altered mental status. Postictal is the most likely cause. We will check an EEG although cannot rule out hypoglycemia as being the main cause and/or hypertensive encephalopathy. Blood pressure is coming down. Blood sugar is normal. CT of the head shows no new lesions. We will observe here overnight. 2. End-stage renal disease, hemodialysis on Monday, Monday, Monday. We will recheck his labs tomorrow to see if he needs further dialysis then as he did not complete his dialysis today. 3. Malignant hypertension. I have added back ARB to his hydralazine with hopes that we can control it better overnight. 4. Diabetes mellitus, type 2. I have placed him on sliding scale. Although he says he takes no insulin at home, he was on it recently. 5. Severe atherosclerotic cardiovascular disease. Troponin order, we will check one in a.m. again. 6. Compliance issues as described above. PLAN: I have called in admission. I have ordered troponin, CBC, and renal function for the morning. Hydralazine p.o. as well as p.o. losartan and metoprolol tartrate as he was on before, he quit taking his medications, and we will try to contact his to confirm the above. KATHERINE/CLIFF Landry Cordero M.D. / [id number] CC: Zara Gupta M.D.
--- NOTE | ~2017-01-30 | CN ---
Consultation Report [facility] [address] [place]. [address] NAME: LUX CONNOLLY : 56 STATUS : ADM IN PAT#: [id number] AGE: 56 ADM/REG DATE : 01/30/17 MR#: [id number] REPORT SERV DATE: 02/02/17 DICTATED BY: TIRSO PALMER DATE: 02/02/17 REPORT STATUS : Draft TRANSCRIBED BY: MODReggie DATE: 02/02/17 PSYCHIATRIC CONSULTATION DATE OF CONSULTATION: 02/02/2017 I reviewed this patient's medical record. I discussed his status with his nurse. I tried to make contact with his , but I did not succeed in doing so. HISTORY OF PRESENT ILLNESS: He was admitted after he had a seizure-like episode. He is now suspected of having a pseudo-seizure. I was asked to address anxiety. PAST PSYCHIATRIC HISTORY: He denied any past psychiatric issues. He denied any issue with anxiety. He said he was somewhat depressed about his leg amputations. Overall, he was a very reluctant informant and my total evaluation was limited by the dark of historical information. SOCIAL HISTORY: He his second in 2005. They about two years ago. He explains "we grew apart I guess." He has no children. FAMILY HISTORY: He reported no psychiatric illness. MENTAL STATUS: He had very little spontaneous speech. When he did answer my questions, his replies were appropriate, but minimally informative. His mood was mildly dysphoric. His affect had a detached quality. His thinking was slow, but logical. He had no delusions. He had no hallucinations. DIAGNOSES: Depression, associated with general medical conditions, mild. RECOMMENDATIONS: I think psychotropic intervention is unlikely to be useful in this patient. Unfortunately, I was unable to get any history from a source other than the patient and this limited my data base. I will sign off. SUN/CLIFF Tirso Palmer M.D. / [id number] CC: Zara Gupta M.D.
--- NOTE | ~2017-01-30 | DS ---
Discharge Summary [facility] [address] [place]. [address] NAME: LUX CONNOLLY : 56 STATUS : DIS IN PAT#: [id number] AGE: 56 ADM/REG DATE : 01/30/17 MR#: [id number] REPORT SERV DATE: 02/16/17 DICTATED BY: LANDRY CORDERO DATE: 02/15/17 REPORT STATUS : Draft TRANSCRIBED BY: CLIFF DATE: 02/15/17 Data Collection from hospitalization DISCHARGE DIAGNOSES: 1. End-stage renal disease-hemodialysis. 2. Nausea, vomiting, and dry heaves. 3. Accelerated hypertension. 4. Chronic pain. 5. Chronic obstructive pulmonary disease. 6. History of bilateral below-knee amputations. 7. Diabetes mellitus. 8. Chronic anemia. 9. Atherosclerotic cardiovascular disease. CONSULTATIONS: Dr. Tirso Perez; Estela Oh, DNP, ACNP-BC; CHARLIE Ball. PROCEDURES PERFORMED: 1. CT scan of the brain without contrast, 01/30/2017. 2. Electroencephalogram, 01/31/2017. MEDICATIONS: Goody's Extra Strength Powder one powder three times a day as needed, Fioricet/Codeine one to two capsules every four hours as needed, Pepcid 40 mg at bedtime, Apresoline 75 mg twice a day, [place] 10/325 one tablet five times a day, NovoLog injection insulin as instructed, Ativan 2.5 mg at bedtime, Cozaar 50 mg daily, Lopressor 100 mg twice a day, Protonix 40 mg before breakfast and supper, Depakene 750 mg every 12 hours. CONDITION AT DISCHARGE: Stable. DISPOSITION: The patient was discharged home to be followed by Home Health Care on a renal diet with activities as instructed. He would follow up at [facility], Mondays, Wednesdays, and Fridays as instructed. HOSPITAL COURSE: This is a 56-year-old man, who has end-stage renal disease. He had been admitted from hemodialysis with an altered mental status. He apparently had presented for dialysis with severe hypertension and was placed on hemodialysis. About an hour and half into the dialysis, he was found to be less responsive. He was unable to be aroused. His blood sugar was 71. He received half an amp of D50 and still there was no response. He began jerking with his arms jumping and was nonfocal. An ambulance was called and he was transferred to [facility]. Upon his arrival, he had no further seizure activity or jerking noted. He began to arouse, but was still not oriented. A CT scan of the brain without contrast showed no new lesions. His blood sugar was 80. His blood pressure was very elevated and he received IV hydralazine. He had some nausea and vomiting and began to feel much better. He was admitted to the hospital at this time for further evaluation and treatment. Upon admission, an EEG was requested. He was felt to have malignant hypertension. ARB was added back to his hydralazine with hopes that his blood pressure could be better controlled Discharge Summary [place] [id number] [facility] [place]. [address] NAME: LUX CONNOLLY : 56 STATUS : DIS IN PAT#: [id number] AGE: 56 ADM/REG DATE : 01/30/17 MR#: [id number] REPORT SERV DATE: 02/16/17 DICTATED BY: LANDRY CORDERO DATE: 02/15/17 REPORT STATUS : Draft TRANSCRIBED BY: CLIFF DATE: 02/15/17 overnight. He was placed on sliding scale insulin. He does not take insulin at home. Following day, he was seen by Estela Oh regarding his altered mental status and seizure. It was felt that a potential cause for his seizure could be mild hypoglycemia. Hemoglobin A1c was going to be checked. The patient was placed on IV Depakote with an IV bolus and would then be placed on oral medications. He was going to be placed on seizure precautions. Ativan was going to be given as needed for seizure activity. It was felt that he could possibly have withdrawal from narcotics. He was going to be given [place] at least once or twice a day to prevent any narcotic withdrawal. On 02/01/2017, hemodialysis therapy was performed. The patient was told that his seizures were not epileptiform or due to hypoglycemia. The patient developed sudden vomiting. He did complain of nausea. Hemoglobin A1c was 4.6. It was felt that he could have irritable bowel syndrome. The following day, he was seen by Donnell Wooten for evaluation and management of nausea, vomiting, and dry heaves. It was felt the patient should undergo an EGD. He was going to be held n.p.o. after midnight. Proton pump inhibitor was increased. H2 inhibitor was added. MiraLAX was also added to his regimen. He was going to receive low-dose Reglan for 24 hours. He was also seen by Dr. Tirso Perez. He had been asked to address the patient's anxiety. The patient was felt to have depression associated with his general medical condition. He felt the psychotropic intervention was unlikely to be useful in this patient. Discharge planning was performed. On 02/03/2017, the patient refused to undergo EGD. He did not feel this would help. He complained of nausea, but felt this was secondary to his left-sided headache. Discharge instructions were given. Due to his improved and stable condition, he was discharged home with the above-stated instructions. Information collected by: Elly Davis I submit the above information as my discharge summary. TG/MODL Landry Cordero M.D. / [id number] CC: Zara Gupta M.D. [place] CHARLIE Wooten M.D.
[2017-01-30 11:02] LABS: BASOPHILS 0.2 %; BASOPHILS ABSOLUTE 0.01 10/3/uL (0.0-0.16); EOSINOPHILS 2.6 %; EOSINOPHILS ABSOLUTE 0.11 10/3/uL (0.0-0.53); IMMATURE GRANULOCYTES 0.2 %; IMMATURE GRANULOCYTES ABSOLUTE 0.01 10/3/uL (0.0-0.11); LYMPHOCYTES 20.8 %; LYMPHOCYTES ABSOLUTE 0.89 10/3/uL (0.67-4.30); MEAN CORPUSCULAR HEMOGLOB 28.2 pg (26.0-34.0); MEAN PLATELET VOLUME 9.3 fL (9.2-13.0); MONOCYTES 11.7 %; NEUTROPHILS 64.5 %; NEUTROPHILS ABSOLUTE 2.75 10/3/uL (2.02-8.40); RBC DISTRIBUTION WIDTH 13.8 % (12.0-16.0); WHITE BLOOD CELLS 4.3 10/3/uL (4.5-10.5)
[2017-01-30 11:03] LABS: HEMATOCRIT 31.8 % (40.0-51.0); HEMOGLOBIN 10.8 g/dL (13.6-17.8); MANUAL DIFF NO %; PLATELET COUNT 107 10/3/uL (150-400); RED CELL COUNT 3.83 10/6/uL (4.7-6.1)
[2017-01-30 11:11] LABS: INTERNATIONAL NORMAL RATI 1.1 UNITS (-); PARTIAL THROMBO TIME 33.3 SEC (22.5-37.2); PROTIME (NOT ORD) 13.8 SEC (12.0-14.5)
[2017-01-30 11:21] LABS: CHLORIDE, SERUM 105 MMOL/L (96-112); DIRECT BILIRUBIN 0.1 MG/DL (0.0-0.4); INDIRECT BILIRUBIN(NOT ORDER) 0.6 MG/DL (0.1-0.9); SODIUM, SERUM 141 MMOL/L (135-148); TOTAL BILIRUBIN 0.7 MG/DL (0-1.2); TOTAL PROTEIN 6.5 G/DL (6.0-8.5)
[2017-01-30 11:22] LABS: BUN (BLOOD UREA NITROGEN) 20 MG/DL (6-23); CALCIUM, SERUM 7.3 MG/DL (8.5-10.4); CO2 (CARBON DIOXIDE) 30 MMOL/L (24-34); CREATININE 3.18 MG/DL (0.70-1.30); GFR AFRICAN AMERICAN 24 ML/MIN (>=60); GFR NON AFRICAN AMERICAN 20 ML/MIN (>=60); GLUCOSE, SERUM 79 MG/DL (60-99); POTASSIUM, SERUM 3.5 MMOL/L (3.5-5.3)
[2017-01-30 11:23] LABS: ALBUMIN 3.2 G/DL (3.5-5.0); CHEST PAIN PROFILE TAT 0 Hrs 25 Mins; TROPONIN I 0.05 NG/ML (<0.05)
[2017-01-30] MEDS ORDERED: NORCO1 TAB PO (11:54)
[2017-01-30] MEDS ORDERED: NOVOLOG SC (11:54)
[2017-01-30] MEDS ORDERED: LANTUS (11:55)
[2017-01-30] MEDS ORDERED: COZ50 PO (11:57)
[2017-01-30] MEDS ORDERED: *UNABLE1 (11:58)
[2017-01-31 06:57] LABS: BASOPHILS 0.5 %; BASOPHILS ABSOLUTE 0.02 10/3/uL (0.0-0.16); EOSINOPHILS 2.9 %; EOSINOPHILS ABSOLUTE 0.12 10/3/uL (0.0-0.53); HEMATOCRIT 30.4 % (40.0-51.0); HEMOGLOBIN 10.4 g/dL (13.6-17.8); LYMPHOCYTES 32.2 %; LYMPHOCYTES ABSOLUTE 1.35 10/3/uL (0.67-4.30); MEAN CORPUS HGB CONC 34.2 g/dL (32.0-36.0); MEAN CORPUSCULAR HEMOGLOB 28.7 pg (26.0-34.0); MEAN PLATELET VOLUME 9.2 fL (9.2-13.0); MONOCYTES 10.3 %; MONOCYTES ABSOLUTE 0.43 10/3/uL (0.21-1.20); NEUTROPHILS 54.1 %; NEUTROPHILS ABSOLUTE 2.27 10/3/uL (2.02-8.40); PLATELET COUNT 120 10/3/uL (150-400); RBC DISTRIBUTION WIDTH 13.7 % (12.0-16.0); RED CELL COUNT 3.62 10/6/uL (4.7-6.1); WHITE BLOOD CELLS 4.2 10/3/uL (4.5-10.5)
[2017-01-31 06:59] LABS: MANUAL DIFF NO %
[2017-01-31 07:14] LABS: DIRECT BILIRUBIN 0.1 MG/DL (0.0-0.4); INDIRECT BILIRUBIN(NOT ORDER) 0.5 MG/DL (0.1-0.9); TOTAL BILIRUBIN 0.6 MG/DL (0-1.2); TROPONIN I 0.05 NG/ML (<0.05)
[2017-01-31] MEDS ORDERED: GOODY'S EX-STR1 EAC1 PO (09:04)
[2017-01-31 18:21] LABS: FOLATE 11.6 NG/ML (>5.2)
[2017-01-31 19:48] LABS: PROCALCITONIN 0.06 ng/mL (<0.5)
[2017-02-01 08:45] LABS: BASOPHILS 0.3 %; BASOPHILS ABSOLUTE 0.02 10/3/uL (0.0-0.16); EOSINOPHILS 3.1 %; EOSINOPHILS ABSOLUTE 0.18 10/3/uL (0.0-0.53); HEMATOCRIT 31.6 % (40.0-51.0); HEMOGLOBIN 10.6 g/dL (13.6-17.8); IMMATURE GRANULOCYTES 0.2 %; IMMATURE GRANULOCYTES ABSOLUTE 0.01 10/3/uL (0.0-0.11); LYMPHOCYTES 35.9 %; LYMPHOCYTES ABSOLUTE 2.07 10/3/uL (0.67-4.30); MEAN CORPUS HGB CONC 33.5 g/dL (32.0-36.0); MEAN CORPUSCULAR HEMOGLOB 28.3 pg (26.0-34.0); MEAN CORPUSCULAR VOLUME 84.3 fL (80-100); MEAN PLATELET VOLUME 9.4 fL (9.2-13.0); MONOCYTES ABSOLUTE 0.52 10/3/uL (0.21-1.20); NEUTROPHILS 51.5 %; NEUTROPHILS ABSOLUTE 2.97 10/3/uL (2.02-8.40); PLATELET COUNT 122 10/3/uL (150-400); RBC DISTRIBUTION WIDTH 13.8 % (12.0-16.0); RED CELL COUNT 3.75 10/6/uL (4.7-6.1); WHITE BLOOD CELLS 5.8 10/3/uL (4.5-10.5)
[2017-02-01 08:47] LABS: MANUAL DIFF NO %
[2017-02-01 09:10] LABS: ALBUMIN 3.1 G/DL (3.5-5.0); CALCIUM, SERUM 7.7 MG/DL (8.5-10.4); CHLORIDE, SERUM 105 MMOL/L (96-112); CHOLESTEROL 128 MG/DL (< 200); CO2 (CARBON DIOXIDE) 28 MMOL/L (24-34); GLUCOSE, SERUM 89 MG/DL (60-99); PHOSPHORUS, SERUM 5.3 MG/DL (2.5-4.5); SODIUM, SERUM 139 MMOL/L (135-148)
[2017-02-01 09:11] LABS: POTASSIUM, SERUM 4.3 MMOL/L (3.5-5.3)
[2017-02-01 09:12] LABS: BUN (BLOOD UREA NITROGEN) 35 MG/DL (6-23); CHOL/HDL RATIO(NOT ORDER) 3.3 (0-5); GFR AFRICAN AMERICAN 12 ML/MIN (>=60); GFR NON AFRICAN AMERICAN 11 ML/MIN (>=60); HDL CHOLESTEROL 39 MG/DL (> 39); LDL CHOLESTEROL 65 MG/DL (< 130); NON-HDL CHOLESTEROL 89 MG/DL (< 160); TRIGLYCERIDE 120 MG/DL (< 150)
[2017-02-01 20:30] LABS: ASCORBIC ACID (UR NOT ORDER) NEG (NEG); BILIRUBIN, URINE NEGATIVE (NEG); KETONE, URINE NEGATIVE (NEG); LEUKOCYTE ESTERASE(NOT OR SMALL (NEG); WBC (NOT ORDERED) (RFLEX) 24 (0-5)
[2017-02-03] MEDS ORDERED: PROTONIX PO (12:03)
[2017-02-03] MEDS ORDERED: FIORICET-COD 51 EACH PO (12:04)
[2017-02-03] MEDS ORDERED: ATIVAN2 MG PO (12:06)
[2017-02-03] MEDS ORDERED: LOP100 PO (12:06)
[2017-02-03] MEDS ORDERED: APRES50 PO (12:07)
[2017-02-03] MEDS ORDERED: PEP20 PO (12:08)
[2017-02-03] MEDS ORDERED: DEP250 PO (12:10)
[2017-02-03 13:58] LABS: BASOPHILS 0.2 %; BASOPHILS ABSOLUTE 0.01 10/3/uL (0.0-0.16); EOSINOPHILS 2.3 %; EOSINOPHILS ABSOLUTE 0.13 10/3/uL (0.0-0.53); HEMATOCRIT 32.5 % (40.0-51.0); IMMATURE GRANULOCYTES 0.2 %; IMMATURE GRANULOCYTES ABSOLUTE 0.01 10/3/uL (0.0-0.11); LYMPHOCYTES 24.9 %; MEAN CORPUS HGB CONC 33.8 g/dL (32.0-36.0); MEAN CORPUSCULAR HEMOGLOB 28.6 pg (26.0-34.0); MEAN CORPUSCULAR VOLUME 84.4 fL (80-100); MEAN PLATELET VOLUME 9.4 fL (9.2-13.0); MONOCYTES ABSOLUTE 0.34 10/3/uL (0.21-1.20); NEUTROPHILS 66.4 %; NEUTROPHILS ABSOLUTE 3.74 10/3/uL (2.02-8.40); PLATELET COUNT 154 10/3/uL (150-400); RBC DISTRIBUTION WIDTH 13.8 % (12.0-16.0); RED CELL COUNT 3.85 10/6/uL (4.7-6.1); WHITE BLOOD CELLS 5.6 10/3/uL (4.5-10.5)
[2017-02-03 13:59] LABS: MANUAL DIFF NO %
[2017-02-03 14:04] LABS: ALBUMIN 3.1 G/DL (3.5-5.0); BUN (BLOOD UREA NITROGEN) 38 MG/DL (6-23); CALCIUM, SERUM 7.9 MG/DL (8.5-10.4); CHLORIDE, SERUM 103 MMOL/L (96-112); CO2 (CARBON DIOXIDE) 28 MMOL/L (24-34); CREATININE 5.94 MG/DL (0.70-1.30); GFR AFRICAN AMERICAN 11 ML/MIN (>=60); GFR NON AFRICAN AMERICAN 10 ML/MIN (>=60); GLUCOSE, SERUM 94 MG/DL (60-99); PHOSPHORUS, SERUM 4.7 MG/DL (2.5-4.5); POTASSIUM, SERUM 5.1 MMOL/L (3.5-5.3); SODIUM, SERUM 138 MMOL/L (135-148)
[2017-02-03 15:18] LABS: INTERNATIONAL NORMAL RATI 1.1 UNITS (-); PROTIME (NOT ORD) 14.2 SEC (12.0-14.5)
[2017-05-17] MEDS ORDERED: *UNABLE1 (22:40)
[2017-05-17] MEDS ORDERED: BP MED (22:40)
== END 2017-02-03 18:52 | disposition home health service (06) | DRG 77 ==
LOC: ER 11:00 → 4SO 17:14
PROVIDERS: Emergency Medicine; Internal Medicine Nephrology; Nurse Practitioner; Registered Nurse
PROC: 5A1D00Z (ICD-10-PCS; principal; 2017-02-01)
DX: I67.4 Hypertensive encephalopathy (principal); N18.6 End stage renal disease; I12.0 Hypertensive chronic kidney disease with stage 5 chronic kidney disease or end stage renal disease; E11.22 Type 2 diabetes mellitus with diabetic chronic kidney disease; F32.0 Major depressive disorder, single episode, mild; Z99.2 Dependence on renal dialysis; I25.10 Atherosclerotic heart disease of native coronary artery without angina pectoris; J44.9 Chronic obstructive pulmonary disease, unspecified; Z89.512 Acquired absence of left leg below knee; Z89.511 Acquired absence of right leg below knee; Z91.14 Patient's other noncompliance with medication regimen; D63.1 Anemia in chronic kidney disease; H54.42 Blindness, left eye, normal vision right eye; E11.649 Type 2 diabetes mellitus with hypoglycemia without coma; N40.0 Benign prostatic hyperplasia without lower urinary tract symptoms; E11.319 Type 2 diabetes mellitus with unspecified diabetic retinopathy without macular edema; E11.40 Type 2 diabetes mellitus with diabetic neuropathy, unspecified; Z86.711 Personal history of pulmonary embolism; Z86.718 Personal history of other venous thrombosis and embolism; Z79.891 Long term (current) use of opiate analgesic; Z88.5 Allergy status to narcotic agent; Z88.8 Allergy status to other drugs, medicaments and biological substances; H91.90 Unspecified hearing loss, unspecified ear; R56.9 Unspecified convulsions; I25.2 Old myocardial infarction; G89.29 Other chronic pain; E11.51 Type 2 diabetes mellitus with diabetic peripheral angiopathy without gangrene; Z53.29 Procedure and treatment not carried out because of patient's decision for other reasons; R11.2 Nausea with vomiting, unspecified
CPT/HCPCS: 70450; 71010; 80048; 80061; 80069; 80076; 81001; 82306; 82533; 82607; 82746; 82962; 83036; 83605; 83735; 84145; 84484; 85025; 85610; 85730; 87077; 87086; 87186; 93005; 95816; 96374; 96375; 96376; 99285; A9270-GY; C9113; G0257; J0360; J1953; J2405; J2550; J2765; P9047